=== PATIENT | female | born 1985 | race Caucasian/White ===

== ENCOUNTER 2016-10-09 00:48 | Emergency (ER) | payer MEDICAID ==
[2016-10-09] MEDS ORDERED: oxyCOD/ACETAMIN 5 MG/325 MG TABLET PO STA (02:04)
[2016-10-09] MEDS ORDERED: oxyCOD/ACETAMIN 5 MG/325 MG TABLET PO ONE (02:10)
== END 2016-10-09 02:21 | disposition home or self-care (01) ==
DX: S22.32XA Fracture of one rib, left side, initial encounter for closed fracture (principal); W18.2XXA Fall in (into) shower or empty bathtub, initial encounter; Y93.E1 Activity, personal bathing and showering; Y92.002 Bathroom of unspecified non-institutional (private) residence as the place of occurrence of the external cause; R07.81 Pleurodynia; F17.200 Nicotine dependence, unspecified, uncomplicated
CPT/HCPCS: 71101; 99283; A9270

== ENCOUNTER 2019-01-03 16:56 | Emergency (ER) | payer MEDICAID ==
[2019-01-03 17:03] VITALS: BP 114/72
[2019-01-03] MEDS ORDERED: TETANUS/DIPHTHERIA/PERTUSSIS 0.5 ML SYRINGE IM ONE (17:13)
--- NOTE | 2019-01-03 17:14 | ED Physician Documentation ---
History of Present Illness - Stated complaint Stated Complaint: LT EDMONDSON PX - Chief complaint Chief Complaint: Laceration - History obtained from History obtained from: Patient - History of Present Illness Timing: How many days ago (2) Improved by: nothing Worsened by: nothing - Additonal information Additional information: left edmondson vs ken nail 2 days ago. last Td 2009. States mild redness today. Review of Systems Constitutional: denies: Fever, Chills GI: denies: Vomiting : denies: Now EGA Skin: denies: Rash PD PAST MEDICAL HISTORY - Past Medical History Past Medical History: No - Past Surgical History Past Surgical History: Yes - Present Medications Home Medications: Ambulatory Orders Medication Instructions Recorded Confirmed Levonorgestrel [Mirena] 1 each IY ONCE 10/09/16 10/09/16 Oxycodone HCl/Acetaminophen 1 - 2 each PO Q8HR PRN #10 tablet 10/09/16 [Percocet 5-325 mg Tablet] Cephalexin [Keflex] 500 mg PO Q6H #28 capsule 01/03/19 - Allergies Allergies/Adverse Reactions: Allergies Allergy/AdvReac Type Severity Reaction Status Date / Time No Known Drug Allergies Allergy Verified 01/03/19 17:02 - Living Situation Living Situation: reports: With family Living Arrangement: reports: At home - Social History Does the pt smoke?: Yes Smoking Status: Current every day smoker Does the pt drink ETOH?: Yes Does the pt have substance abuse?: No - Family History Family history: reports: Non contributory - Immunizations Immunizations are current?: Yes Immunizations: TDAP current <10years (2009) - POLST Patient has POLST: No PD ED PE NORMAL - Vitals Vital signs reviewed: Yes - General General: Alert and oriented X 3, No acute distress, Well developed/nourished - HEENT HEENT: Moist mucous membranes - Neck Neck: Supple, no meningeal sign - Derm Derm: Warm and dry - Extremities Extremities: Other (LLE - mild swelling, and erythema to the distal aspect. no drainage. small wound present. ) - Neuro Neuro: Alert and oriented X 3 - Psych Psych: Normal mood, Normal affect Results - Vitals Vitals: Vital Signs - 24 hr 01/03/19 16:59 Temperature 36.6 C Heart Rate 100 Respiratory 19 Rate Blood Pressure 114/72 O2 Saturation 99 Oxygen O2 Source Room air PD MEDICAL DECISION MAKING - ED course Complexity details: reviewed results, re-evaluated patient, considered differential, d/w patient ED course: Patient with mild cellulitis. Pharmacies are closed, given dose of Rocephin. Will place on oral antibiotics tomorrow. Tdap given. Warnings of infection and instructions on wound care given at bedside. Also counseled on how to minimize scarring. Patient counseled regarding signs and symptoms for which I believe and urgent re-evaluation would be necessary. Patient with good understanding of and agreement to plan and is comfortable going home at this time This document was made in part using voice recognition software. While efforts are made to proofread this document, sound alike and grammatical errors may occur. Departure - Departure Disposition: Home, Self Care Clinical Impression: Cellulitis Qualifiers: Site of cellulitis: unspecified site Qualified Code(s): L03.90 - Cellulitis, unspecified Condition: Good Instructions: ED Infec Skin Cellulitis Follow-Up: your,doctor within 3 days for wound check [Other] Prescriptions: Cephalexin [Keflex] 500 mg PO Q6H #28 capsule Comments: Take all antibiotics until gone. Return if you worsen. Follow-up with your doctor for further care. You should have a wound check with your doctor in 2 to 3 days. Discharge Date/Time: 01/03/19 17:44
[2019-01-03] MEDS ORDERED: cefTRIAXone 1 GM VIAL IM STA (17:23)
[2019-01-03] MEDS ORDERED: LIDOCAINE 1% 2 ML VIAL MC ONE (17:23)
== END 2019-01-03 17:44 | disposition home or self-care (01) ==
LOC: ED 16:56
DX: L03.116 Cellulitis of left lower limb (principal); S81.832A Puncture wound without foreign body, left lower leg, initial encounter; W45.0XXA Nail entering through skin, initial encounter; W22.8XXA Striking against or struck by other objects, initial encounter; Z23 Encounter for immunization; F17.200 Nicotine dependence, unspecified, uncomplicated
CPT/HCPCS: 90471; 96372; 99284

== ENCOUNTER 2020-05-25 04:45 | Emergency (ER) | payer MEDICAID ==
[2020-05-25 04:57] VITALS: BP 127/59
--- NOTE | 2020-05-25 05:12 | ED Physician Documentation ---
PD HPI SKIN - Stated complaint Stated Complaint: ABCESS ON TAILBONE - Chief complaint Chief Complaint: Wound - History obtained from History obtained from: Patient - History of Present Illness Timing - onset: How many days ago (2) Timing - duration: Days (2) Timing - details: Gradual onset, Still present Location: Other (buttocks crack) Quality / character: Painful, Swelling, Draining Associated symptoms: No: Fever, Myalgias, Joint pain, Headache Contributing factors: Other (has had similar drainage in same area previously) Similar symptoms before: Diagnosis (abscess) Recently seen: Not recently seen - Additional information Additional information: Previously well 34-year-old female is developed some swelling and tenderness to the upper portion of the buttocks crack at the end of her tailbone and she is now developed some drainage to the area this evening. She notes that after she had some drainage from the area her pain and burning became much improved and she is coming in now for evaluation and treatment. She has had this happen to her twice previously the last time was about 10 years ago. She has had to have incision and drainage done twice. She does not ever remember hearing the term pilonidal cyst. She does have a doctor in [place]. Review of Systems Constitutional: denies: Fever Eyes: denies: Decreased vision Ears: denies: Ear pain Nose: denies: Congestion Throat: denies: Sore throat Cardiac: denies: Chest pain / pressure Respiratory: denies: Dyspnea, Cough GI: denies: Vomiting PD PAST MEDICAL HISTORY - Past Medical History Cardiovascular: None Respiratory: None Neuro: None Endocrine/Autoimmune: None GI: None SOUP PERSON: None : None HEENT: None Psych: Depression Musculoskeletal: None Derm: None - Past Surgical History Past Surgical History: Yes - Present Medications Home Medications: Ambulatory Orders Medication Instructions Recorded Confirmed Sulfamethox/Trimeth 800/160 1 each PO BID #14 tablet 05/25/20 [Bactrim Ds] - Allergies Allergies/Adverse Reactions: Allergies Allergy/AdvReac Type Severity Reaction Status Date / Time No Known Drug Allergies Allergy Verified 01/03/19 17:02 - Social History Does the pt smoke?: Yes Smoking Status: Current every day smoker Does the pt drink ETOH?: Yes Does the pt have substance abuse?: No - Immunizations Immunizations are current?: Yes Immunizations: TDAP current <10years (2009) - POLST Patient has POLST: No PD ED PE NORMAL - Vitals Vital signs reviewed: Yes (Cardiac and wide pulse pressure ) - General General: Alert and oriented X 3, No acute distress, Well developed/nourished - HEENT HEENT: Atraumatic, PERRL, EOMI - Respiratory Respiratory: No respiratory distress - Back Back: No CVA TTP, Other (over the sacrum in the crack of the buttocks the area is firm with a central area of drainage. There is no fluctuance present. ) - Derm Derm: Normal color, Warm and dry - Extremities Extremities: No deformity, No edema - Neuro Neuro: Alert and oriented X 3, manager collection 2-12 intact, No motor deficit, No sensory deficit, Normal speech Eye Opening: Spontaneous Motor: Obeys Commands Verbal: Oriented GCS Score: 15 - Psych Psych: Normal mood, Normal affect Results - Vitals Vitals: Vital Signs - 24 hr 05/25/20 04:50 Temperature 36.3 C L Heart Rate 102 H Respiratory 18 Rate Blood Pressure 127/59 L O2 Saturation 98 Oxygen O2 Source Room air PD MEDICAL DECISION MAKING - ED course Complexity details: considered differential, d/w patient ED course: 34-year-old female with what appears to be a pilonidal cyst which is spontaneo usly draining has improved the patient's symptoms. Departure - Departure Disposition: 01 Home, Self Care Clinical Impression: Pilonidal cyst with abscess Condition: Stable Instructions: ED Cyst Pilonidal Infec Abx Only Follow-Up: Mike Mckeon MD [Provider Admit Priv/Credential] - Prescriptions: Sulfamethox/Trimeth 800/160 [Bactrim Ds] 1 each PO BID #14 tablet
[2020-05-25] MEDS ORDERED: SULFAMETH/TRIMETH DS 800/160 MG TABLET PO STA (05:24)
== END 2020-05-25 05:29 | disposition home or self-care (01) ==
LOC: ED 04:45
DX: L05.01 Pilonidal cyst with abscess (principal); F17.200 Nicotine dependence, unspecified, uncomplicated
CPT/HCPCS: 87070; 87077; 87205; 99283; 99284; A9270

== ENCOUNTER 2020-12-29 06:19 | Emergency (ER) | payer MEDICAID ==
--- NOTE | 2020-12-29 07:36 | ED Physician Documentation ---
History of Present Illness - Stated complaint Stated Complaint: SWOLLEN RED LEFT BREAST - Chief complaint Chief Complaint: General - History obtained from History obtained from: Patient - Additonal information Additional information: 35-year-old woman with bilateral nipple piercings that were repierced a month ago presents with 3 days of pain swelling and erythema to the right breast, gradual onset, progressively worsening, constant, aching, nonradiating. No nipple discharge. Also with headaches and decreased energy. Denies body aches or fever. Not . Review of Systems Constitutional: reports: Fatigue. denies: Fever, Chills, Myalgias Skin: reports: Other (erythema) Neurologic: reports: Generalized weakness, Headache PD PAST MEDICAL HISTORY - Past Medical History Past Medical History: Yes Cardiovascular: None Respiratory: None Neuro: None Endocrine/Autoimmune: None GI: None LOG SNAKER: None : None HEENT: None Psych: Depression Musculoskeletal: None Derm: None - Past Surgical History Past Surgical History: Yes - Present Medications Home Medications: Ambulatory Orders Medication Instructions Recorded Confirmed cephALEXin [Keflex] 500 mg PO Q6H #28 12/29/20 - Allergies Allergies/Adverse Reactions: Allergies Allergy/AdvReac Type Severity Reaction Status Date / Time No Known Drug Allergies Allergy Verified 01/03/19 17:02 - Social History Does the pt smoke?: Yes Smoking Status: Current every day smoker Does the pt drink ETOH?: Yes Does the pt have substance abuse?: No - Immunizations Immunizations are current?: Yes Immunizations: TDAP current <10years (2009) - POLST Patient has POLST: No PD ED PE NORMAL - Vitals Vital signs reviewed: Yes - General General: Alert and oriented X 3, No acute distress, Well developed/nourished - HEENT HEENT: Atraumatic, PERRL, EOMI - Neck Neck: Supple, no meningeal sign - Derm Derm: Normal color, Warm and dry, Other (Left medial upper quadrant of the breast with erythema, warmth, mild swelling. No fluctuance. No purulence expressible from the nipple. Bilateral nipple piercings.) Results - Vitals Vitals: Vital Signs - 24 hr 12/29/20 12/29/20 06:27 06:57 Temperature 36.0 C L Heart Rate 100 Respiratory 16 16 Rate Blood Pressure 112/65 O2 Saturation 100 Oxygen O2 Source Room air PD MEDICAL DECISION MAKING - ED course ED course: 35-year-old woman presents with left breast cellulitis. Patient refused to take out her piercing. Advised her to take it out immediately if she changes her mind. Strict return precautions given. Antibiotics given. She will follow up with her primary doctor and will return if she does not have an improvement in 48 hours. Departure - Departure Disposition: Home, Self Care Clinical Impression: Mastitis Condition: Good Instructions: ED Breast Infec Prescriptions: cephALEXin [Keflex] 500 mg PO Q6H #28 Comments: You were seen in the emergency department for skin infection of the breast. Take your antibiotics as prescribed and please consider taking your piercing out immediately. Return to the emergency department if you do not have improvement in 48 hours. Return if you have any spread beyond the borders that we [place]. Follow-up with your primary doctor.
[2020-12-29 07:42] VITALS: BP 101/65
== END 2020-12-29 07:46 | disposition home or self-care (01) ==
LOC: ED 06:19
DX: N61.0 Mastitis without abscess (principal); F17.200 Nicotine dependence, unspecified, uncomplicated
CPT/HCPCS: 99282; 99283